=== PATIENT | male | born 1960 | race American Indian/Alaskan Native ===

== ENCOUNTER 2016-07-04 23:42 | Inpatient (IN) | payer MEDICARE ==
[2016-07-05 08:13] LABS: Basophils % (Auto) 0.6 % (0.0-1.8); Eosinophils % (Auto) 2.7 % (0.0-4.3); Hematocrit 45.1 % (35.5-45.6); Hemoglobin 14.4 gm/dl (11.8-15.2); Mean Corpuscular HGB Conc 32 % (32-34); Mean Corpuscular Volume 78 fl (84-94); Platelet Count 123 K/mm3 (140-440); Red Cell Distribution Width 15.2 % (13.2-15.2); White Blood Count 5.2 K/mm3 (4.5-11.0)
[2016-07-05 08:25] LABS: Mean Corpuscular Hemoglobin 25 pg (28-32)
[2016-07-05 08:40] LABS: Blood Urea Nitrogen 11 mg/dL (9-20); Calcium 9.5 mg/dL (8.4-10.2); Carbon Dioxide 29 mmol/L (22-30); Chloride 100.3 mmol/L (98-107); Glucose 94 mg/dL (75-100); Potassium 4.2 mmol/L (3.6-5.0); Sodium 140 mmol/L (137-145)
[2016-07-05 08:43] LABS: Anion Gap 15 mmol/L
--- NOTE | 2016-07-05 09:17 | XRay Report ---
Left foot 3 views: History: Wound between first and second toe. Findings: There is no fracture, periosteal reaction or lytic lesion. Generalized osteopenia. Impression: Findings as detailed above.
--- NOTE | 2016-07-05 10:00 | Emergency Department Report ---
HPI - General Chief Complaint: Wound/Laceration Time Seen by Provider: 07/05/16 07:41 - HPI HPI: 54-year-old male presents today with an open wound between his toes of left foot 10 days. Patient states he was seen by his primary care provider who performed a wound culture with positive results. Patient was referred here for IV antibiotics. He does not have to results with him. Denies injury or trauma. Denies history of diabetes or hypertension. Patient is positive for HIV and is currently on antiretroviral therapy. Describes the pain as 4 out of 10 throbbing pain that comes and goes. Denies fever, chills, chest pain, shortness of breath, abdominal pain, nausea, vomiting. ED Past Medical Hx - Past Medical History Previous Medical History?: Yes Hx CVA: Yes Hx HIV: Yes - Surgical History Past Surgical History?: No - Social History Smoking Status: Former Smoker - Medications Home Medications: Home Medications Medication Instructions Recorded Confirmed Last Taken Type Sulfamethoxazole/Trimethoprim 800 mg PO DAILY 07/05/16 07/05/16 Unknown History [Bactrim 400-80 mg] ED Review of Systems ROS: Stated complaint: L FOOT PAIN Other details as noted in HPI Constitutional: denies: chills, fever, malaise Eyes: denies: eye pain ENT: denies: ear pain, throat pain, congestion Respiratory: denies: cough, shortness of breath, wheezing Cardiovascular: denies: chest pain, palpitations Endocrine: no symptoms reported Gastrointestinal: denies: abdominal pain, nausea, vomiting Musculoskeletal: arthralgia Neurological: denies: headache, weakness, numbness, paresthesias Physical Exam - Physical Exam Vital Signs: Vital Signs 07/05/16 07/05/16 00:31 07:57 Temperature 98.1 F 97.9 F Pulse Rate 81 60 Respiratory 20 12 Rate Blood Pressure 152/89 Blood Pressure 150/89 [Left] O2 Sat by Pulse 100 98 Oximetry Physical Exam: GENERAL: The patient is well-developed and well-nourished. Patient is in NAD. HEAD: Normocephalic. Atraumatic. CHEST/LUNGS: Clear to auscultation throughout. HEART/CARDIOVASCULAR: Regular rate and rhythm. No murmurs, rubs or gallops. ABDOMEN: Abdomen is soft, nontender. No guarding or rebound tenderness. LEFT FOOT: Full ankle range of motion. Extensive onychomycosis noted. Positive for foot edema and warm to touch. White-yellow drainage noted from the first webspace with foul odor. Peripheral pulses intact. Capillary refill less than 2 seconds. NEURO: Alert and oriented x 3. Antalgic gait. ED Course Vital Signs 07/05/16 07/05/16 00:31 07:57 Temperature 98.1 F 97.9 F Pulse Rate 81 60 Respiratory 20 12 Rate Blood Pressure 152/89 Blood Pressure 150/89 [Left] O2 Sat by Pulse 100 98 Oximetry - Reevaluation(s) Reevaluation #1: 07/05/16 12:30 Spoke with Infectious Diseases Recommended against Amphotericin B and Vancomycin empirically. Asked to wait for cultures as long as patient is stable. 07/05/16 12:48 ED Medical Decision Making - Lab Data Result diagrams: 07/05/16 08:01 07/05/16 08:01 Vital Signs 07/05/16 07/05/16 00:31 07:57 Temperature 98.1 F 97.9 F Pulse Rate 81 60 Respiratory 20 12 Rate Blood Pressure 152/89 Blood Pressure 150/89 [Left] O2 Sat by Pulse 100 98 Oximetry Lab Results 07/05/16 07/05/16 07/05/16 Range/Units 08:01 08:01 10:42 WBC 5.2 (4.5-11.0) K/mm3 RBC 5.80 H (3.65-5.03) M/mm3 Hgb 14.4 (11.8-15.2) gm/dl Hct 45.1 (35.5-45.6) % MCV 78 L (84-94) fl MCH 25 L (28-32) pg MCHC 32 (32-34) % RDW 15.2 (13.2-15.2) % Plt Count 123 L (140-440) K/mm3 Lymph % (Auto) 46.0 H (13.4-35.0) % [place] % (Auto) 7.9 H (0.0-7.3) % Eos % (Auto) 2.7 (0.0-4.3) % Baso % (Auto) 0.6 (0.0-1.8) % Lymph # 2.4 (1.2-5.4) K/mm3 [place] # 0.4 (0.0-0.8) K/mm3 Eos # 0.1 (0.0-0.4) K/mm3 Baso # 0.0 (0.0-0.1) K/mm3 Seg Neutrophils % 42.8 (40.0-70.0) % Seg Neutrophils # 2.2 (1.8-7.7) K/mm3 PT 12.6 (12.2-14.9) Sec. INR 0.95 (0.87-1.13) APTT 31.5 (24.2-36.6) Sec. Sodium 140 (137-145) mmol/L Potassium 4.2 (3.6-5.0) mmol/L Chloride 100.3 (98-107) mmol/L Carbon Dioxide 29 (22-30) mmol/L Anion Gap 15 mmol/L BUN 11 (9-20) mg/dL Creatinine 1.1 (0.8-1.5) mg/dL Estimated GFR > 60 ml/min BUN/Creatinine Ratio 10.00 % Glucose 94 (75-100) mg/dL Lactic Acid (0.7-2.0) mmol/L Calcium 9.5 (8.4-10.2) mg/dL Magnesium (1.7-2.3) mg/dL Total Bilirubin (0.1-1.2) mg/dL Direct Bilirubin (0-0.2) mg/dL Indirect Bilirubin mg/dL AST (5-40) units/L ALT (7-56) units/L Alkaline Phosphatase (35-129) units/L Total Protein (6.3-8.2) g/dL Albumin (3.9-5) g/dL Albumin/Globulin Ratio % 07/05/16 07/05/16 Range/Units 10:42 10:42 WBC (4.5-11.0) K/mm3 RBC (3.65-5.03) M/mm3 Hgb (11.8-15.2) gm/dl Hct (35.5-45.6) % MCV (84-94) fl MCH (28-32) pg MCHC (32-34) % RDW (13.2-15.2) % Plt Count (140-440) K/mm3 Lymph % (Auto) (13.4-35.0) % [place] % (Auto) (0.0-7.3) % Eos % (Auto) (0.0-4.3) % Baso % (Auto) (0.0-1.8) % Lymph # (1.2-5.4) K/mm3 [place] # (0.0-0.8) K/mm3 Eos # (0.0-0.4) K/mm3 Baso # (0.0-0.1) K/mm3 Seg Neutrophils % (40.0-70.0) % Seg Neutrophils # (1.8-7.7) K/mm3 PT (12.2-14.9) Sec. INR (0.87-1.13) APTT (24.2-36.6) Sec. Sodium (137-145) mmol/L Potassium (3.6-5.0) mmol/L Chloride (98-107) mmol/L Carbon Dioxide (22-30) mmol/L Anion Gap mmol/L BUN (9-20) mg/dL Creatinine (0.8-1.5) mg/dL Estimated GFR ml/min BUN/Creatinine Ratio % Glucose (75-100) mg/dL Lactic Acid 1.1 (0.7-2.0) mmol/L Calcium (8.4-10.2) mg/dL Magnesium 1.5 L (1.7-2.3) mg/dL Total Bilirubin 2.6 H (0.1-1.2) mg/dL Direct Bilirubin 0.3 H (0-0.2) mg/dL Indirect Bilirubin 2.3 mg/dL AST 37 (5-40) units/L ALT 58 H (7-56) units/L Alkaline Phosphatase 87 (35-129) units/L Total Protein 8.0 (6.3-8.2) g/dL Albumin 3.8 L (3.9-5) g/dL Albumin/Globulin Ratio 0.9 % - Medical Decision Making 55-year-old male with past medical history of HIV, presents today with an open wound between his first and second toe of left foot. Patient states he was referred here by his primary care provider post-positive culture results. Patient does not have his results with him. His lab work reveals normal white blood count. Blood cultures, wound cultures and fungal cultures have been ordered. Consulted with Dr. Rubi. Hepatic panel, lactic acid, coags were ordered. Dr. Rubi recommended consult with infectious diseases and admission. Infectious disease recommended against amphotericin B and vancomycin empirically at this time since patient is in stable condition. Discussed patient with Dr. Munoz who will be admitting the patient. Critical care attestation.: If time is entered above; I have spent that time in minutes in the direct care of this critically ill patient, excluding procedure time. ED Disposition Clinical Impression: Skin infection Disposition: OP ADMITTED IP TO THIS HOSP Is pt being admited?: Yes Condition: Stable Referrals: MAKEDA GARDNER MD [Primary Care Provider] - 3-5 Days
[2016-07-05 11:14] LABS: Albumin 3.8 g/dL (3.9-5); Albumin/Globulin Ratio 0.9 %; Bilirubin,Direct 0.3 mg/dL (0-0.2); Bilirubin,Indirect 2.3 mg/dL; Bilirubin,Total 2.6 mg/dL (0.1-1.2); INR 0.95 (0.87-1.13); Magnesium 1.5 mg/dL (1.7-2.3)
[2016-07-05 11:15] LABS: Partial Thromboplastin Time 31.5 Sec. (24.2-36.6)
[2016-07-05] MEDS ORDERED: VANCOMYCIN PHARMACY TO DOSE IV SCH (15:00)
[2016-07-05] MEDS ORDERED: MAGNESIUM SULFATE 2GM/50ML 2 GM/50 ML BAG IV ONE (15:00)
[2016-07-05] MEDS ORDERED: ZOFRAN IV PRN (15:02)
[2016-07-05] MEDS ORDERED: TYLENOL PO PRN (15:02)
--- NOTE | 2016-07-05 15:42 | History and Physical Report ---
History of Present Illness Date of examination: 07/05/16 Chief complaint: left foot wound History of present illness: Patient 55 yo man with a history of HIV and CVA who presents with left foot pain and worsening infection not responding to Bactrim given by Dr. Vimal Rasheed. The left foot wound started about week and half ago inbetween the big toe and adjacent toe. Now the wound is worse, pain radiating up foot associated with foul odor and drainage. He denies any other symptoms. Past History Past Medical History: other (as hpi) Past Surgical History: No surgical history Social history: full code. denies: smoking, alcohol abuse, prescription drug abuse, IV drug use Family history: diabetes, hypertension Medications and Allergies Allergies Allergy/AdvReac Type Severity Reaction Status Date / Time No Known Allergies Allergy Verified 07/05/16 14:53 Home Medications Medication Instructions Recorded Confirmed Last Taken Type Sulfamethoxazole/Trimethoprim 800 mg PO DAILY 07/05/16 07/05/16 Unknown History [Bactrim 400-80 mg] Active Meds: Active Medications Acetaminophen (Tylenol) 650 mg PO Q6H PRN PRN Reason: Non Cardiac Pain or Temp>100.5 Heparin Sodium (Porcine) (Heparin) 5,000 unit SUB-Q Q12HR JENNI Vancomycin HCl 1,250 mg/ (Sodium Chloride) 250 mls @ 166.667 mls/hr IV Q12H JENNI Ondansetron HCl (Zofran) 4 mg IV Q4H PRN PRN Reason: Nausea And Vomiting Pantoprazole Sodium (Protonix) 40 mg PO QDAY JENNI Vancomycin HCl (Vancomycin Pharmacy To Dose) 1 each IV PKCONSULT JENNI PRN Reason: Protocol Review of Systems All systems: negative (as HPI and all other ROS reviewed and negative.) Exam - Physical Exam Narrative exam: GEN: WDWN, NAD, AWAKE, ALERT, ORIENTATED x 3 HEENT: NCAT, PERRL, EOMI, OP CLEAR NECK: SUPPLE, NO THYROMEGALY, NO JVD, NO LAD CVS: RRR, NORMAL S1S2 LUNGS/CHEST: CTA B, NORMAL CHEST EXPANSION B, GOOD AIR ENTRY B ABD: SOFT NTND, GBS, NO REBOUND OR GUARDING EXT/SKIN: NO SIGNIFICANT EDEMA, in web of big toe on the left there is ulcerated foul smelling purulent lesion with surrounding erythema, redness, warm and tenderness. MSK: FROM X 4 EXTREMITIES NEURO: CN 2-12 GROSSLY INTACT, NO new FOCAL DEFICITS PSY: CALM - Constitutional Vitals: Temp Pulse Resp BP Pulse Ox 97.9 F 60 12 150/89 98 07/05/16 07:57 07/05/16 07:57 07/05/16 07:57 07/05/16 07:57 07/05/16 07:57 Results - Labs CBC & Chem 7: 07/05/16 08:01 07/05/16 08:01 Labs: Abnormal lab results 07/05/16 07/05/16 Range/Units 08:01 10:42 RBC 5.80 H (3.65-5.03) M/mm3 MCV 78 L (84-94) fl MCH 25 L (28-32) pg Plt Count 123 L (140-440) K/mm3 Lymph % (Auto) 46.0 H (13.4-35.0) % [place] % (Auto) 7.9 H (0.0-7.3) % Magnesium 1.5 L (1.7-2.3) mg/dL Total Bilirubin 2.6 H (0.1-1.2) mg/dL Direct Bilirubin 0.3 H (0-0.2) mg/dL ALT 58 H (7-56) units/L Albumin 3.8 L (3.9-5) g/dL Assessment and Plan Patient 55 yo man with a history of HIV and CVA who presents with left foot pain and worsening infection not responding to Bactrim given by Dr. Vimal Rasheed. The left foot wound started about week and half ago inbetween the big toe and adjacent toe. Now the wound is worse, pain radiating up foot associated with foul odor and drainage. He denies any other symptoms. 1. Left foot ulcer with cellulitis not responding to outpatient Bactrim: Patient did not bring his wound culture from his PCP. We'll reculture him, treat with IV vancomycin and consult wound care 2. Hypomagnesemia: Replace and recheck in a.m. 3. HIV: Advised patient to bring his home medications
[2016-07-05] MEDS: VANCOMYCIN VIAL 1,250 MG in NACL 0.9% 250ML 250 ML IV SCH (16:25)
--- NOTE | 2016-07-06 00:17 | Admit Criteria Form ---
Admission Criteria Documentation: SKIN AND WOUND CARE Clinical Indications for Inpatient Care (Place 'X' for any and all applicable criteria): Ongoing inpatient care may be indicated for pressure, venous, arterial, or neuropathic ulcers, with ANY ONE of the following (2)(3)(8)(9)(21)(25): [ ]I. Need for ANY ONE of the following(26) [ ]a) Pressure ulcer closure procedures [ ]b) Skin grafting [ ]c) Wound debridement [ ]d) Dressing change under general anesthesia [ ]e) Arterial revascularization procedures(19) (Also use Aortofemoral or Aortoiliac Bypass or Femoral Popliteal Bypass Criteria as appropriate) [ ]f) Amputation (Also use Foot: Transmetatarsal Amputation or Knee: Amputation Above or Below Knee Criteria as appropriate) [ ]g) Diverting colostomy [ ]h) Other significant surgical treatment [X ]II. Infection requiring inpatient care as indicated by ALL of the following (27) [X ]a) ANY ONE of the following signs of infection: [ ]i) Poorly approximated incision line. [ X]ii) Excessive drainage [ ]iii) Foul odor [ ]iv) Pus [ ]v) Increased redness [ ]vi) Breakdown in tissue after suture removal [ ]vii) Fever [X ]b) ANY ONE of the following findings: [ ]i) Mental status changes [ ]ii) Dehydration [ ]iii) Bacteremia [ ]iv) Perineal infection [ ]v) Hemodynamic instability [X ]vi) High-risk conditions, such as ANY ONE of the following: [ ]1) Poorly controlled diabetes [ ]2) Cirrhosis [ ]3) Neutropenia [ ]4) Asplenia [ X]5) HIV infection [ ]6) Immunosuppression Extended stay beyond goal length of stay for primary condition may be needed until ALL of the following are present(1)(2)(13)(21)(27): [ ]a) Tissue necrosis absent or treatment plan manageable at lower level of care [ ]b) Fistulas, tunneling, or underlying deep tissue infection absent or treated [ ]c) Purulence and tissue breakdown absent or improved [ ]d) Ulcer surgical repair absent or healing without complications [ ]e) Wound infection absent or manageable at lower level of care [ ]f) Comorbidities absent or manageable at lower level of care The original [email or web address] [employer] content created by [employer] has been revised. The portions of the content which have been revised are identified through the use of italic text or in bold, and [facility] has neither reviewed nor approved the modified material. All other unmodified content is copyright [facility]. Please see references footnoted in the original [facility] edition 2016 Admission Criteria Met: Yes
[2016-07-06] MEDS: VANCOMYCIN VIAL 1,250 MG in NACL 0.9% 250ML 250 ML IV SCH (03:56)
[2016-07-06 07:21] LABS: Hemoglobin 13.5 gm/dl (11.8-15.2); Mean Corpuscular HGB Conc 32 % (32-34); Mean Corpuscular Volume 78 fl (84-94); Platelet Count 112 K/mm3 (140-440); Red Blood Count 5.41 M/mm3 (3.65-5.03); Red Cell Distribution Width 15.1 % (13.2-15.2); White Blood Count 4.9 K/mm3 (4.5-11.0)
[2016-07-06 07:29] LABS: Mean Corpuscular Hemoglobin 25 pg (28-32)
[2016-07-06 07:53] LABS: Anion Gap 15 mmol/L; Blood Urea Nitrogen 11 mg/dL (9-20); Calcium 8.8 mg/dL (8.4-10.2); Carbon Dioxide 26 mmol/L (22-30); Glucose 81 mg/dL (75-100); Potassium 4.2 mmol/L (3.6-5.0); Sodium 140 mmol/L (137-145)
[2016-07-06] MEDS: PROTONIX PO SCH (10:24)
[2016-07-06] MEDS: CLEOCIN 600 MG/50 mL 600 MG/50 ML BAG IV SCH ×3 (10:27→23:06)
--- NOTE | 2016-07-06 10:35 | Progress Note ---
Assessment and Plan Assessment and plan: 1. Left great toes cellulitis due to infected tinea pedis- d/c vancomycin; start nystatin powder and switch to IV clindamycin; d/wed with patient's nurse about the need to do wound care before applyinh nystatin 2. Hypomagnesemia-improved 3. HIV- no acute issues; will restart home meds once they become available 4. DVT prophylaxis- lovenox History Interval history: f/u infected toe Patient seen at the bedside; pain between the LT great toe still persists Hospitalist Physical - Constitutional Vitals: Temp Pulse Resp BP Pulse Ox 97.6 F 64 18 138/86 97 07/06/16 10:15 07/06/16 10:15 07/06/16 10:15 07/06/16 10:15 07/06/16 10:15 General appearance: Present: no acute distress, well-nourished - EENT Eyes: Present: PERRL, EOM intact. Absent: scleral icterus, conjunctival injection ENT: hearing intact, clear oral mucosa, no oropharyngeal erythema, no poor dentition - Neck Neck: Present: supple, normal ROM. Absent: enlarged thyroid, masses or JVD - Respiratory Respiratory effort: normal Respiratory: bilateral: diminished, negative: rales, rhonchi, wheezing - Cardiovascular Rhythm: regular Heart Sounds: Present: S1 & S2. Absent: gallop - Extremities Extremities: no ischemia, pulses intact, pulses symmetrical, No edema, normal temperature, abnormal (foul smelling odor between the Lt greata and 2nd toe with maceration; evidence of tinea pedis between the toes of bith feet; swelling and redness of Lt great toe ) Peripheral Pulses: within normal limits - Abdominal General gastrointestinal: soft, non-tender, non-distended, normal bowel sounds - Integumentary Integumentary: Present: clear - Psychiatric Psychiatric: appropriate mood/affect, intact judgment & insight, cooperative - Neurologic Neurologic: CNII-XII intact, moves all extremities Results - Labs CBC & Chem 7: 07/06/16 05:59 07/06/16 05:59 Labs: Laboratory Last Values WBC 4.9 K/mm3 (4.5-11.0) 07/06/16 05:59 RBC 5.41 M/mm3 (3.65-5.03) H 07/06/16 05:59 Hgb 13.5 gm/dl (11.8-15.2) 07/06/16 05:59 Hct 42.0 % (35.5-45.6) 07/06/16 05:59 MCV 78 fl (84-94) L 07/06/16 05:59 MCH 25 pg (28-32) L 07/06/16 05:59 MCHC 32 % (32-34) 07/06/16 05:59 RDW 15.1 % (13.2-15.2) 07/06/16 05:59 Plt Count 112 K/mm3 (140-440) L 07/06/16 05:59 Lymph % (Auto) 46.0 % (13.4-35.0) H 07/05/16 08:01 [place] % (Auto) 7.9 % (0.0-7.3) H 07/05/16 08:01 Eos % (Auto) 2.7 % (0.0-4.3) 07/05/16 08:01 Baso % (Auto) 0.6 % (0.0-1.8) 07/05/16 08:01 Lymph # 2.4 K/mm3 (1.2-5.4) 07/05/16 08:01 [place] # 0.4 K/mm3 (0.0-0.8) 07/05/16 08:01 Eos # 0.1 K/mm3 (0.0-0.4) 07/05/16 08:01 Baso # 0.0 K/mm3 (0.0-0.1) 07/05/16 08:01 Seg Neutrophils % 42.8 % (40.0-70.0) 07/05/16 08:01 Seg Neutrophils # 2.2 K/mm3 (1.8-7.7) 07/05/16 08:01 PT 12.6 Sec. (12.2-14.9) 07/05/16 10:42 INR 0.95 (0.87-1.13) 07/05/16 10:42 APTT 31.5 Sec. (24.2-36.6) 07/05/16 10:42 Sodium 140 mmol/L (137-145) 07/06/16 05:59 Potassium 4.2 mmol/L (3.6-5.0) 07/06/16 05:59 Chloride 103.0 mmol/L (98-107) 07/06/16 05:59 Carbon Dioxide 26 mmol/L (22-30) 07/06/16 05:59 Anion Gap 15 mmol/L 07/06/16 05:59 BUN 11 mg/dL (9-20) 07/06/16 05:59 Creatinine 1.0 mg/dL (0.8-1.5) 07/06/16 05:59 Estimated GFR > 60 ml/min 07/06/16 05:59 BUN/Creatinine Ratio 11.00 % 07/06/16 05:59 Glucose 81 mg/dL (75-100) 07/06/16 05:59 POC Glucose 88 (70-105) 07/05/16 07:55 Lactic Acid 1.1 mmol/L (0.7-2.0) 07/05/16 10:42 Calcium 8.8 mg/dL (8.4-10.2) 07/06/16 05:59 Magnesium 1.8 mg/dL (1.7-2.3) 07/06/16 09:10 Total Bilirubin 2.6 mg/dL (0.1-1.2) H 07/05/16 10:42 Direct Bilirubin 0.3 mg/dL (0-0.2) H 07/05/16 10:42 Indirect Bilirubin 2.3 mg/dL 07/05/16 10:42 AST 37 units/L (5-40) 07/05/16 10:42 ALT 58 units/L (7-56) H 07/05/16 10:42 Alkaline Phosphatase 87 units/L (35-129) 07/05/16 10:42 Total Protein 8.0 g/dL (6.3-8.2) 07/05/16 10:42 Albumin 3.8 g/dL (3.9-5) L 07/05/16 10:42 Albumin/Globulin Ratio 0.9 % 07/05/16 10:42 Microbiology 07/05/16 08:11 Toe - Left Second Wound Culture - Preliminary 07/05/16 08:01 Peripheral/Venous Blood Culture - Preliminary Culture in Progress 07/05/16 08:28 Peripheral/Venous Blood Culture - Preliminary Culture in Progress 07/05/16 10:42 Peripheral/Venous Blood Fungal Culture - Preliminary Culture in Progress 07/05/16 11:02 Peripheral/Venous Blood Fungal Culture - Preliminary Culture in Progress
[2016-07-06] MEDS: NYSTOP TP SCH ×2 (13:49→23:41)
[2016-07-06] MEDS: HEPARIN SUB-Q SCH (23:06)
[2016-07-07] MEDS: CLEOCIN 600 MG/50 mL 600 MG/50 ML BAG IV SCH (05:47)
[2016-07-07 09:01] VITALS: BP 126/88
--- NOTE | 2016-07-07 09:05 | Discharge Summary ---
Providers - Providers Date of Admission: 07/05/16 16:29 Date of discharge: 07/07/16 Attending physician: KEENAN FISHMAN 07/06/16 09:01 Consult to Wound/ET Nurse [CONS] Urgent Reason For Exam: wound eval Primary care physician: MAKEDA GARDNER Hospitalization Reason for admission: infected Lt great toe /interdigital space;tineas pedis Condition: Stable Pertinent studies: X-ray the foot-no fractures, osteopenia Hospital course: Mr. Cervantes is a 55-year-old gentleman who presented to the emergency room with pain and swelling between the left first and second toes with fall smell. He was assessed as having tinea pedis infection with secondary bacterial infection. He was initially started on antibiotics and topical antifungal to the feet. He had improvement in pain and swelling as well as order prior to discharge. Condition at discharge-stable 32 minutes spent preparing discharge Disposition: DISCHARGED TO HOME OR SELFCARE - Discharge Diagnoses (1) Tinea pedis of both feet Status: Acute (2) Skin infection Status: Acute (3) HIV (human immunodeficiency virus infection) Status: Chronic Core Measure Documentation - Palliative Care Palliative Care/ Comfort Measures: Not Applicable - Core Measures Any of the following diagnoses?: none Exam - Constitutional Vitals: Temp Pulse Resp BP Pulse Ox 97.5 F L 60 18 126/88 98 07/07/16 08:10 07/07/16 08:10 07/07/16 08:10 07/07/16 08:10 07/07/16 08:10 General appearance: Present: no acute distress - EENT Eyes: Present: PERRL, EOM intact. Absent: scleral icterus, conjunctival injection ENT: hearing intact, clear oral mucosa, no oropharyngeal erythema, no poor dentition - Neck Neck: Present: supple, normal ROM. Absent: enlarged thyroid, masses or JVD - Respiratory Respiratory effort: normal Respiratory: negative: diminished, rales, rhonchi, wheezing - Cardiovascular Rhythm: regular Heart Sounds: Present: S1 & S2. Absent: gallop - Extremities Extremities: no ischemia, pulses intact, pulses symmetrical, No edema Extremity abnormal: other (left great toe mildly swollen; no significant odor coming from the foot, less macerated and wet ) - Abdominal General gastrointestinal: Present: soft, non-tender, non-distended, normal bowel sounds Plan Activity: advance as tolerated Diet: regular Follow up with: MAKEDA GARDNER MD [Primary Care Provider] - 3-5 Days Prescriptions: Clindamycin [Clindamycin CAP] 300 mg PO Q6H 5 Days Nystatin [Nystop Powder] 1 applic TP BID 7 Days
[2016-07-07] MEDS: NYSTOP TP SCH (10:19)
[2016-07-07] MEDS: PROTONIX PO SCH (10:19)
[2016-07-07] MEDS: HEPARIN SUB-Q SCH (10:20)
== END 2016-07-07 14:06 | disposition home or self-care (01) | DRG 602 ==
LOC: ED 23:42 → 3A 07-05 16:29
PROVIDERS: ADMIT Internal Medicine; ATTEND Hospitalist
DX: L03.032 Cellulitis of left toe (principal); B20 Human immunodeficiency virus [HIV] disease; E83.42 Hypomagnesemia; L97.529 Non-pressure chronic ulcer of other part of left foot with unspecified severity; B35.3 Tinea pedis; A49.9 Bacterial infection, unspecified; Z87.891 Personal history of nicotine dependence; Z86.73 Personal history of transient ischemic attack (TIA), and cerebral infarction without residual deficits; Z83.3 Family history of diabetes mellitus; Z82.49 Family history of ischemic heart disease and other diseases of the circulatory system
CPT/HCPCS: 36415; 80048; 80074; 82140; 82962; 83735; 85025; 85027; 85610; 85730; 87040; 87102; 87103; 87116; 87205; 87220; 96365; J1644; J3370; J3475; J7050